=== PATIENT | female | born 1960 | race Caucasian/White ===

== ENCOUNTER 2023-02-27 18:13 | Emergency (ER) | payer MEDICARE, OTHER ==
[~2023-02-27] VITALS: Ht 149.9 cm; Wt 62.1 kg
[2023-02-27] MEDS ORDERED: TDAP [DIPH/PERTUSSIS/TET] 0.5 ML VIAL IM ONE ×2 (18:51→19:00)
[2023-02-27] MEDS ORDERED: LIDOCAINE 0.5%-EPI 1:200,000 50 ML VIAL ONE (19:21)
[2023-02-27 19:57] VITALS: BP 135/89; TEMP 98.1; O2SAT 98
== END 2023-02-27 19:56 | disposition home or self-care (01) ==
LOC: ER 18:25
DX: S01.01XA Laceration without foreign body of scalp, initial encounter (principal); S09.90XA Unspecified injury of head, initial encounter; W18.30XA Fall on same level, unspecified, initial encounter; Y93.89 Activity, other specified; Y92.89 Other specified places as the place of occurrence of the external cause; Y99.8 Other external cause status
CPT/HCPCS: 12002; 70450; 72125; 90471; 90715; 99285; A6403; J3490

== ENCOUNTER 2024-12-14 12:05 | Emergency (ER) | payer MEDICARE, OTHER ==
[~2024-12-14] VITALS: Ht 152.4 cm; Wt 66.7 kg
[2024-12-14 12:15] VITALS: BP 135/85; TEMP 98.2; O2SAT 97
[2024-12-14] MEDS ORDERED: ACETAMINOPHEN ES 500 MG TABLET ONE (12:26)
[2024-12-14] MEDS: ACETAMINOPHEN ES 500 MG TABLET PO ONE (12:28)
== END 2024-12-14 12:39 | disposition left against medical advice (07) ==
LOC: ER 12:08
DX: S00.03XA Contusion of scalp, initial encounter (principal); G35 Multiple sclerosis; W18.39XA Other fall on same level, initial encounter; Y93.K1 Activity, walking an animal; Y92.413 State road as the place of occurrence of the external cause; Y99.8 Other external cause status